=== PATIENT | female | born 1960 | race Caucasian/White ===

== ENCOUNTER 2016-05-22 12:06 | Outpatient (CLI) | payer OTHER ==
[2016-05-22 12:50] LABS: eGFR (African) > 60; eGFR (Non-African) > 60
== END 2016-05-22 12:07 ==
LOC: LAB 12:06
PROVIDERS: ATTEND Family Medicine
DX: I10 Essential (primary) hypertension (principal); E11.65 Type 2 diabetes mellitus with hyperglycemia; F43.29 Adjustment disorder with other symptoms
CPT/HCPCS: 36415; 80053; 80061; 83036

== ENCOUNTER 2016-12-18 07:58 | Outpatient (CLI) | payer OTHER ==
[2016-12-18 08:54] LABS: eGFR (African) > 60; eGFR (Non-African) > 60
== END 2016-12-18 08:00 ==
LOC: LAB 07:58
PROVIDERS: ATTEND Family Medicine
DX: I10 Essential (primary) hypertension (principal); E11.65 Type 2 diabetes mellitus with hyperglycemia
CPT/HCPCS: 36415; 80053; 80061; 82043; 83036

== ENCOUNTER 2018-04-08 13:45 | Outpatient (CLI) | payer OTHER | END 2018-04-08 13:46 | LOC: LABRHC 13:45 | PROVIDERS: ATTEND Family Medicine | DX: E11.65 Type 2 diabetes mellitus with hyperglycemia (principal); I10 Essential (primary) hypertension | CPT/HCPCS: 83036 ==

== ENCOUNTER 2018-10-24 07:58 | Outpatient (CLI) | payer OTHER ==
[2018-10-24 08:17] LABS: A1C 10.9 % (<5.7)
[2018-10-24 08:23] LABS: HDL 37 mg/dL (>40); eGFR (Non-African) > 60
== END 2018-10-24 08:00 ==
LOC: LAB 07:58
PROVIDERS: ATTEND Family Medicine
DX: E11.65 Type 2 diabetes mellitus with hyperglycemia (principal); I10 Essential (primary) hypertension
CPT/HCPCS: 36415; 80053; 80061; 83036